=== PATIENT | male | born 1960 | race African-American/Black ===

== ENCOUNTER 2018-05-02 23:27 | Observation (INO) | payer OTHER ==
--- NOTE | 2018-05-02 23:49 | PDOC ---
Attending Attestation - HPI HPI: 05/03/18 00:38 The patient is a 57-year-old male with past medical history significant for DM, HTN, L. bundle branch block (10 years ago), prostate CA s/p prostatectomy (total ) and lithotripsy presents to the emergency department via EMS with chest pain since 9:00 pm. The patient presents with intermittent L. sided chest pain that radiates to the L. side of the shoulder. The patient describes the pain as pressure in character, with initial severity of 9/10. The patient reports the pain is associated with difficulty breathing, nausea, headache, diaphoresis and lightheadedness. Enroute, the patient was given 324 mg of ASA. The patient reports a decrease in severity since. The patient reports an episode of shortness of breath yesterday when he was ambulating up the stairs. Denies palpitation, shortness of breath, regurgitation, heartburn, trauma to the chest , orthopnea, dyspnea. The patient reports the daily use of ASA. The patient reports a recent hospitalization for L. sided numbness, denies having a stroke. The patient reports being compliant with his medications. Allergies: None recorded. Social history: No past or present use of tobacco, alcohol or recreational drug use. Continuous Improvement Engineer: Dr. Roldan. 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 The patient reports having an Echo done, which no changes compares to prior. Stress test normal. PCP: Last follow up a few months ago. - Physicial Exam PE: 05/03/18 01:57 GENERAL: Awake, alert, and fully oriented, in no acute distress HEAD: No signs of trauma EYES: PERRLA, EOMI, sclera anicteric, conjunctiva clear ENT: Auricles normal inspection, hearing grossly normal, nares patent, oropharynx clear without exudates. Moist mucosa NECK: Normal ROM, supple, no lymphadenopathy, JVD, or masses LUNGS: Breath sounds equal, clear to auscultation bilaterally. No wheezes, and no crackles HEART: Regular rate and rhythm, normal S1 and S2, no murmurs, rubs or gallops ABDOMEN: Soft, nontender, normoactive bowel sounds. No guarding, no rebound. No masses EXTREMITIES: Normal range of motion, no edema. No clubbing or cyanosis. No cords, erythema, or tenderness NEUROLOGICAL: Cranial nerves II through XII grossly intact. Normal speech, normal gait SKIN: Warm, Dry, normal turgor, no rashes or lesions noted. - Medical Decision Making 05/03/18 00:39 Documentation prepared by Benita Tristan, acting as medical legal investigator for Chandni Sanchez MD. <Benita Tristan - Last Filed: 05/03/18 01:57> - Resident Resident Name: Boubacar Guzmán - ED Attending Attestation I have performed the following: I have examined & evaluated the patient, The case was reviewed & discussed with the resident, I agree w/resident's findings & plan - HPI HPI: 05/02/18 23:48 Pt comes with CP. LBBB on EKG; unknown if it is old or new. - Physicial Exam PE: 05/03/18 00:27 Agree with resident exam - Medical Decision Making 05/03/18 00:27 Cardiac enzymes -serial; we will admit to telemetry obs. 05/03/18 02:08 Pt has normal labs; only BUN and Cr are elevated. <Chandni Sanchez - Last Filed: 05/03/18 02:08> Heart Score/ECG Review - History History: Slightly suspicious - Electrocardiogram EKG: Non specific repolarization disturbance - Age Age: 45-65 - Risk Factors Risk Factors Heart Score: Yes Hx Hypertension, Yes Hx Diabetes Based on the list above the patient has:: 1-2 risk factors - Troponin Troponin: </= normal limit - Score Heart Score - Total: 3 <Chandni Sanchez - Last Filed: 05/03/18 02:08>
--- NOTE | 2018-05-03 00:26 | PDOC ---
History of Present Illness - General Stated Complaint: CHEST PAIN Time Seen by Provider: 05/02/18 23:41 History Source: Patient Exam Limitations: No Limitations - History of Present Illness Initial Comments: 05/03/18 00:14 57 y/o M with PMH of HTN, DM, HLD, LBBB( diagnosed 10 years ago), ca prostate s/ p prostectomy in 2006 ( NO RT) was brought to hospital by EMS with a chief complaint of chest pain. Patient states that pain started at 9 pm when h was trying to stand. Pain was on left side 6/10 in intensity, pressure type, radiating to left neck arm and whole left side side. Pain is intermittent since then last for 10 to q5 minutes and goes away it self. Reoccurs after very 5 to 10 minute. Pain was associated with nausea, sob, lightheadedness and diaphoresis. Pt got 324mg of aspirin in ambulance. Since he is in hospital his chest pain has decreased to 1/10 in intensity and has no more sob, lightheadedness and nausea. He also report sob when he go up stairs. Denies orthopnea, Paroxysmal dyspnea. Denies swelling in legs. Denies heart burn and regurgitation. Link Trainer Teacher Dr friedman--- last time seen last year.--- Report nuclear stress test was done and as per aria it was normal. Also states echo done last year has no change. Saw his supervisor opening and picking few months ago. Traveled one month ago to [place]. PMH as above PSH: lithotripsy right side, prostatectomy Social non smoker, ocassional alcohol Family: no h/o heart disease Medication:amlodipine 10mg daily lisinopril 40 daily toprol xl 100mg daily metformin 1000mg bid aspirin 81 daily lipitor daily victoza 1.2 mg daily Patient took all meds today. Past History - Past Medical History Allergies/Adverse Reactions: Allergies Allergy/AdvReac Type Severity Reaction Status Date / Time No Known Allergies Allergy Verified 05/03/18 01:11 Home Medications: Ambulatory Orders Amlodipine Besylate 10 mg PO DAILY 05/03/18 Atorvastatin Ca [Lipitor] 20 mg PO HS 05/03/18 Liraglutide [Victoza -] 1.2 unit SQ DAILY 05/03/18 Lisinopril [Prinivil -] 40 mg PO DAILY 05/03/18 Metformin HCl [Metformin HCl ER] 1,000 mg PO BID 05/03/18 Metoprolol Tartrate [Lopressor] 100 mg PO DAILY 05/03/18 - Suicide/Smoking/Psychosocial Hx Smoking History: Never smoked Have you smoked in the past 12 months: No Information on smoking cessation initiated: No Hx Alcohol Use: No Drug/Substance Use Hx: No Review of Systems - Review of Systems Able to Perform ROS?: Yes Constitutional: Yes: Diaphoresis. No: Chills, Fever HEENTM: No: Blurred Vision Respiratory: Yes: SOB with Exertion. No: Cough, Shortness of Breath, SOB at Rest Cardiac (ROS): Yes: Chest Pain, Lightheadedness, Chest Tightness. No: Irregular Heart Rate, Palpitations, Syncope ABD/GI: Yes: Nausea. No: Diarrhea, Difficulty Swallowing, Rectal Bleeding, Vomiting Musculoskeletal: No: Back Pain Neurological: Yes: Headache. No: Numbness, Paresthesia, Seizure, Tingling *Physical Exam - Vital Signs Last Vital Signs Temp Pulse Resp BP Pulse Ox 97.7 F 74 18 128/79 99 05/02/18 23:53 05/02/18 23:53 05/02/18 23:53 05/02/18 23:53 05/02/18 23:53 - Physical Exam General Appearance: Yes: Appropriately Dressed. No: Apparent Distress HEENT: positive: EOMI Neck: positive: Normal Thyroid, Supple. negative: Tender Respiratory/Chest: positive: Lungs Clear, Normal Breath Sounds. negative: Chest Tender, Respiratory Distress, Accessory Muscle Use, Stridor, Wheezing Cardiovascular: positive: Regular Rhythm, Regular Rate, S1, S2. negative: Murmur Gastrointestinal/Abdominal: positive: Normal Bowel Sounds, Flat, Soft. negative : Distended, Guarding, Rebound, Tenderness Musculoskeletal: positive: Normal Inspection. negative: CVA Tenderness Extremity: positive: Normal Inspection, Normal Range of Motion, Pedal Edema (1+) . negative: Tender Neurologic: positive: eastern philosophy professor II-XII NML intact, Fully Oriented, Alert, Normal Mood/ Affect, Normal Response, Motor Strength 5/5 ED Treatment Course - LABORATORY CBC & Chemistry Diagram: 05/03/18 00:38 05/03/18 00:12 Medical Decision Making - Medical Decision Making 05/03/18 00:29 57 y/o M with PMH of HTN, DM, HLD, LBBB( diagnosed 10 years ago), ca prostate s/ p prostectomy in 2006 ( NO RT) was brought to hospital by EMS with a chief complaint of chest pain. Patient states that pain started at 9 pm when h was trying to stand. Pain was on left side 6/10 in intensity, pressure type, radiating to left neck arm and whole left side side. Pain is intermittent since then last for 10 to 5 minutes and goes away it self. Reoccurs after very 5 to 10 minute. Pain was associated with nausea, sob, lightheadedness and diaphoresis. Pt got 324mg of aspirin in ambulance. Since he is in hospital his chest pain has decreased to 1/10 in intensity and has no more sob, lightheadedness and nausea. He also report sob when he go up stairs. Denies orthopnea, Paroxysmal dyspnea. Denies swelling in legs. Denies heart burn and regurgitation. Link Trainer Teacher Dr friedman--- last time seen last year.--- Report nuclear stress test was done and as per patinet it was normal. Also states echo done last year has no change. ekg : NSr, LBBB, qtc 454, hr 69, qrs 146 we will get cbc, cmp, cardiac profile and lipid profile patient got 324mg aspirin in ambulance. Took toprol 100mg, lisinopril, lipitor, amlodipine and metformin in morning. start patient on cardiac monitoring. HEART score 6. 05/03/18 01:27 initial trop i normal. we will repeat tropi after 6 hours. patient has high suspicious history with h/o LBBB we will keep pt for observation Plan discussed with dr karrie hein microbloged. 05/03/18 02:[address] Tung Garcias. we will keep patient for obs. *DC/Admit/Observation/Transfer Diagnosis at time of Disposition: Chest pain at rest - Discharge Dispostion Decision to Admit order: Yes - Referrals - Patient Instructions - Post Discharge Activity
[2018-05-03 00:53] LABS: BASO % 0.7 % (0-2.0); EOS % 1.6 % (0-4.5); HEMATOCRIT 39.4 % (35.4-49); HEMOGLOBIN 13.2 GM/dL (11.7-16.9); LYMPH % 22.2 % (8-40); MCH 29.3 pg (25.7-33.7); MCHC 33.6 g/dl (32.0-35.9); MEAN CELL VOLUME 87.4 fl (80-96); MEAN PLT VOLUME 8.3 fl (7.5-11.1); MONO % 8.6 % (3.8-10.2); NEUT % 66.9 % (42.8-82.8); PLATELET COUNT 207 K/MM3 (134-434); RBC 4.51 M/mm3 (4.00-5.60); RDW 14.4 % (11.9-15.9); WHITE BLOOD COUNT 6.4 K/mm3 (4.0-10.0)
[2018-05-03 01:23] LABS: ALK PHOS 85 U/L (45-117); ANION GAP 6 MMOL/L (8-16); BILIRUBIN,TOTAL 0.7 mg/dL (0.2-1); BLOOD UREA NITROGEN 24 mg/dL (7-18); CHLORIDE 100 mmol/L (98-107); CHOLESTEROL 154 mg/dL (50-200); CO2 31 mmol/L (21-32); CREATININE 1.7 mg/dL (0.55-1.3); GLUCOSE,RANDOM 116 mg/dL (74-106); HDL CHOLESTEROL 44 mg/dL (40-60); MAGNESIUM 1.9 mg/dL (1.8-2.4); POTASSIUM 3.8 mmol/L (3.5-5.1); SGOT/AST 19 U/L (15-37); SGPT/ALT 22 U/L (13-61); SODIUM 137 mmol/L (136-145); TOT PROT 7.7 g/dl (6.4-8.2); TRIGLYCERIDES 142 mg/dL (0-150)
[2018-05-03] MEDS ORDERED: ATORVASTATIN CA 40 MG TABLET (FP) PO ONE (01:33)
--- NOTE | 2018-05-03 01:36 | PN ---
Teaching Attending Note Name of Resident: Mauro Kessler ATTENDING PHYSICIAN STATEMENT I saw and evaluated the patient. I reviewed the resident's note and discussed the case with the resident. I agree with the resident's findings and plan as documented. SUBJECTIVE: Patient is a 57 year old man with PMH of HTN, DM, HLD, LBBB ( diagnosed 10 years ago), and prostate cancer s/p prostectomy in 2006 ( NO RT) was brought to the ER by EMS with a chief complaint of chest pain. Patient states that pain started at 9 pm when he was trying to stand. Pain was on left side 6/10 in intensity, pressure type, radiating to left neck arm and whole left side side. Pain is intermittent since then last for 10 to q5 minutes and goes away it self. Reoccurs after very 5 to 10 minute. Pain was associated with nausea, sob, lightheadedness and diaphoresis. Pt got 324mg of aspirin in ambulance. Since he is in hospital his chest pain has decreased to 1/10 in intensity and has no more sob, lightheadedness and nausea. He also report SOB when he goes upstairs. Denies orthopnea, PND or swelling in his legs. OBJECTIVE: Alert and in no acute distress Vital Signs Period Temp Pulse Resp BP Sys/[place] Pulse Ox Last 24 Hr 97.7 F 70-74 16-18 128-155/70-79 99-99 HEENT: No Jaundice, eye redness or discharge, PERRLA, EOMI. Normocephalic, atraumatic. External ears are normal and hearing is grossly intact. No nasal discharge. Neck: Supple, nontender. No palpable adenopathy or thyromegaly. No JVD Chest: Good effort. Clear to auscultation and percussion. Heart: Regular. No S3, rub or murmur Abdomen: Not distended, soft, nontender and no HSM. No rebound or guarding. Normoactive bowel sounds. Ext: Peripheral pulses intact. No leg edema. Skin: Warm and dry. No petechiae, rash or ecchymosis. Neuro: Alert. Oriented x3. CN 2-12 grossly intact. Sensation grossly intact in all four extremities and DTR are symmetric. Home Medications Medication Instructions Recorded Amlodipine Besylate 10 mg PO DAILY 05/03/18 Atorvastatin Ca [Lipitor] 20 mg PO HS 05/03/18 Liraglutide [Victoza -] 1.2 unit SQ DAILY 05/03/18 Lisinopril [Prinivil -] 40 mg PO DAILY 05/03/18 Metformin HCl [Metformin HCl ER] 1,000 mg PO BID 05/03/18 Metoprolol Tartrate [Lopressor] 100 mg PO DAILY 05/03/18 Abnormal Lab Results 05/03/18 00:12 Anion Gap 6 L BUN 24 H Creatinine 1.7 H Random Glucose 116 H ASSESSMENT AND PLAN: 1. Chest pain - Has major risk factors. Says he had negative cardiac cath and stress test a while back. EKG shows LBBB with no changes of ACS and initial troponin is negative. Will admit as an Obs case to telemetry to rule out ACS. Get ECHO and cardiology consult. Adjust medications to attain normotension. Patient counseled to make sure he does not take all his antihypertensive medications at one time - needs to take am and pm to ensure adequate 24 hour BP control. Low salt diet and lifestyle changes stressed. 2. DM - For now, we will hold the home diabetes drugs and implement sliding scale insulin regimen. Provide comprehensive diabetes care with patient teaching and counseling about the importance of euglycemia, eye care and foot care. 3. DARIEN? - Etiology unclear. Will get UA and sonogram. Avoid nephrotoxic agents such as NSAIDS, aminoglycosides, contrast dyes and certain Alternative medicine products. 4. DVT prophylaxis - Heparin 5000u sq tid. 5. Advance directives - Full code
[2018-05-03] MEDS ORDERED: ATORVASTATIN CA 40 MG TABLET (FP) ONE (01:46)
[2018-05-03] MEDS ORDERED: SODIUM CHLORIDE 0.9% 500 ML INFUS.BAG IV ONE (01:57)
[2018-05-03] MEDS ORDERED: ACETAMINOPHEN 325 MG TABLET (FP) ONE (02:19)
[2018-05-03] MEDS ORDERED: ACETAMINOPHEN 325 MG TABLET (FP) PO ONE (02:30)
[2018-05-03] MEDS ORDERED: SODIUM CHLORIDE 1,000 ML IV SCH (03:00)
[2018-05-03 04:01] VITALS: BMI 24.7
--- NOTE | 2018-05-03 04:03 | HP ---
CHIEF COMPLAINT: Chest pain/pressure, nausea, sweating, SOB PCP: HISTORY OF PRESENT ILLNESS: 57 yo male with PMH of HTN, HLD, known LBBB (diagnosed years ago), Prostate cancer s/p Prostatectomy, kidney stones s/p multiple lithotripsies in the last year presented to the ED with a complaint of chest pain vs pressure that he says was 6/10, radiated up his neck on the left and down his entire body on the left, and was associated with SOB, diaphoresis, lightheadedness, and possibly some mild confusion. He states he has never had this sensation before, though pt does admit to requiring a PCI many years ago which did not require any cardiac stents. He states that he had a nuclear stress test about two years ago which was also normal. Of note he mentions that he has been told on a prior echo years ago that he has a very small "hole in his heart" but he does not know specifically what it is. Of note he also mentions a recent history of multiple kidney stones. He says he has had "two lithotripsies and a laser" done in the last year or so. He says that he thinks he has one now. He denies any gross hematuria, and says he saw a doctor yesterday who checked his urine and said it was okay. 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 ER course was notable for: (1) EKG, Cardiac enzymes not concerning for ACS (2) CBC, CMP (3) Recent Travel: none PAST MEDICAL HISTORY: As Above PAST SURGICAL HISTORY: Lithotripsies Prostatectomy Social History: Smoking: denies Alcohol: occasional use Drugs: denies Family History: Allergies No Known Allergies Allergy (Verified 05/03/18 01:11) HOME MEDICATIONS: Home Medications Medication Instructions Recorded Amlodipine Besylate 10 mg PO DAILY 05/03/18 Atorvastatin Ca [Lipitor] 20 mg PO HS 05/03/18 Liraglutide [Victoza -] 1.2 unit SQ DAILY 05/03/18 Lisinopril [Prinivil -] 40 mg PO DAILY 05/03/18 Metformin HCl [Metformin HCl ER] 1,000 mg PO BID 05/03/18 Metoprolol Tartrate [Lopressor] 100 mg PO DAILY 05/03/18 REVIEW OF SYSTEMS CONSTITUTIONAL: diaphoresis Absent: fever, chills,, generalized weakness, malaise, loss of appetite, weight change HEENT: Absent: rhinorrhea, nasal congestion, throat pain, throat swelling, difficulty swallowing, mouth swelling, ear pain, eye pain, visual changes CARDIOVASCULAR: chest pain, lightheadedness Absent: , syncope, palpitations, irregular heart rate,, peripheral edema RESPIRATORY: Absent: cough, shortness of breath, dyspnea with exertion, orthopnea, wheezing, stridor, hemoptysis GASTROINTESTINAL: nausea, Absent: abdominal pain, abdominal distension, vomiting, diarrhea, constipation, melena, hematochezia GENITOURINARY: Absent: dysuria, frequency, urgency, hesitancy, hematuria, flank pain, genital pain MUSCULOSKELETAL: Absent: myalgia, arthralgia, joint swelling, back pain, neck pain SKIN: Absent: rash, itching, pallor HEMATOLOGIC/IMMUNOLOGIC: Absent: easy bleeding, easy bruising, lymphadenopathy, frequent infections ENDOCRINE: Absent: unexplained weight gain, unexplained weight loss, heat intolerance, cold intolerance NEUROLOGIC: Absent: headache, focal weakness or paresthesias, dizziness, unsteady gait, seizure, mental status changes, bladder or bowel incontinence PSYCHIATRIC: Absent: anxiety, depression, suicidal or homicidal ideation, hallucinations. PHYSICAL EXAMINATION Vital Signs - 24 hr 05/02/18 05/03/18 05/03/18 23:53 01:20 02:28 Temperature 97.7 F 97.4 F L Pulse Rate 74 Pulse Rate [ 70 72 Left Radial] Respiratory 18 16 16 Rate Blood Pressure 128/79 Blood Pressure 155/70 149/83 [Right Arm] O2 Sat by Pulse 99 99 100 Oximetry (%) GENERAL: A&O, no acute distress HEAD: Normocephalic, atraumatic. EYES: PERRL, no scleral icterus EARS, NOSE, THROAT: oropharynx clear without exudates. Moist mucous membranes. NECK: supple without lymphadenopathy LUNGS: CTA b/l, no crackles or wheezes HEART: Regular rate and rhythm, louder S2, without murmur ABDOMEN: Soft, nontender to palpation, normoactive bowel sounds MUSCULOSKELETAL: No bony deformities or tenderness. EXTREMITIES: 2+ pulses, warm, well-perfused. No peripheral edema. NEUROLOGICAL: Cranial nerves II-XII grossly intact. Normal speech. PSYCHIATRIC: Cooperative. Good eye contact. Appropriate mood and affect. SKIN: Warm, dry, no rashes or lesions noted Laboratory Results - last 24 hr 05/03/18 05/03/18 00:12 00:38 WBC 6.4 RBC 4.51 Hgb 13.2 Hct 39.4 MCV 87.4 MCH 29.3 MCHC 33.6 RDW 14.4 Plt Count 207 MPV 8.3 Absolute Neuts (auto) 4.3 Neutrophils % 66.9 Lymphocytes % 22.2 Monocytes % 8.6 Eosinophils % 1.6 Basophils % 0.7 Nucleated RBC % 0 Sodium 137 Potassium 3.8 Chloride 100 Carbon Dioxide 31 Anion Gap 6 L BUN 24 H Creatinine 1.7 H Creat Clearance w eGFR 41.46 Random Glucose 116 H Calcium 9.0 Magnesium 1.9 Total Bilirubin 0.7 AST 19 ALT 22 Alkaline Phosphatase 85 Creatine Kinase 215 Creatine Kinase Index 0.4 CK-MB (CK-2) < 1.0 Troponin I < 0.02 Total Protein 7.7 Albumin 4.0 Triglycerides 142 Cholesterol 154 Total LDL Cholesterol 95 HDL Cholesterol 44 ASSESSMENT/PLAN: 57 yo male with PMH of HTN, HLD, NIDDM, known LBBB (diagnosed years ago), Prostate cancer s/p Prostatectomy, kidney stones s/p multiple lithotripsies in the last year placed into telemetry observation for r/o ACS Chest Pain - r/o ACS -Pt heart score is a 6 mostly due to pt history -Chest pain has improved, likely not ACS -EKG likely unchanged, repeat at 6am -Troponin negative, repeat at 6 am -Telemetry monitoring -Cardiology consult ordered -Echo ordered DARIEN, (vs CKD) possibly due to Recurrent renal calculi -Pt is followed outpatient -BUN/Cr noted elevated, Pt does not recall his most recent values -Encourage PO fluid hydration in addition to NS @ 100 cc/hr -Renal ultrasound -Consider nephrology input if worsening in AM with hydration HTN -Amlodipine 10 mg PO Daily -Lisinopril 40 mg PO Daily -Toprol XL 100 Daily -Will verify and restart, elevation in blood pressure could be secondary to pain HLD/ Probable CAD as per history -Lipitor 20 mg HS -ASA 81 NIDDM -Hold oral hyperlycemic meds -BGMs ACHS -Insulin sliding scale, will start low as pt likely insulin naive DVT Prophylaxis -Heparin 5000 units SQ TID FEN -Fluids: NS @ 75 cc/hr -Electrolytes: No electrolyte abnormalities, BMP in AM -Nutrition: Diabetic Diet Disposition Telemetry Observation Visit type - Emergency Visit Emergency Visit: Yes Care time: The patient presented to the Emergency Department on the above date and was hospitalized for further evaluation of their emergent condition. - New Patient This patient is new to me today: Yes Date on this admission: 05/03/18 - Critical Care Critical Care patient: No Hospitalist Screening - Colonoscopy Questionnaire Colonoscopy Questionnaire: Colonoscopy Questionnaire - Patient: 50 - 75 years old and never had a screening colonoscopy: Unknown History of colon or rectal polyps, or CA: Unknown History of IBD, Crohn's disease or UC: Unknown History of abdominal radiation therapy as a child: Unknown - Relative: 1 with colon or rectal CA, or polyps at age 60 or younger: Unknown Colon or rectal CA diagnosed at age 45 or younger: Unknown Multiple relatives with colon or rectal CA: Unknown - Outcome: Screening Result: Negative Screen
[2018-05-03] MEDS: INSULIN SLIDING SCALE (NOVOLOG) 1 VIAL SQ SCH ×2 (06:10→11:54)
[2018-05-03] MEDS: HEPARIN NA (PORCINE) 5,000 UNITS/ML 1ML VIAL SQ SCH ×2 (06:11→14:32)
[2018-05-03 06:13] LABS: HEMATOCRIT 39.3 % (35.4-49); MCH 28.9 pg (25.7-33.7); MCHC 33.2 g/dl (32.0-35.9); MEAN CELL VOLUME 87.1 fl (80-96); MEAN PLT VOLUME 8.3 fl (7.5-11.1); PLATELET COUNT 177 K/MM3 (134-434); RBC 4.51 M/mm3 (4.00-5.60); RDW 14.7 % (11.9-15.9); WHITE BLOOD COUNT 6.4 K/mm3 (4.0-10.0)
[2018-05-03 06:27] VITALS: TEMP 97.7
[2018-05-03 06:29] LABS: INR 1.19 (0.83-1.09); PROTHROMBIN TIME (PATIENT) 13.5 SEC (9.7-13.0)
[2018-05-03 06:42] LABS: URINE APPEARANCE CLEAR; URINE BILIRUBIN NEGATIVE (<2.0 mg/dL); URINE COLOR COLORLESS; URINE GLUCOSE (UA) NEGATIVE (NEGATIVE); URINE KETONE NEGATIVE (NEGATIVE); URINE LEUK ESTERASE NEGATIVE (NEGATIVE); URINE NITRITE NEGATIVE (NEGATIVE); URINE PROTEIN NEGATIVE (NEGATIVE); URINE UROBILINOGEN NEGATIVE mg/dL (0.2-1.0)
[2018-05-03 07:18] LABS: ANION GAP 5 MMOL/L (8-16); BLOOD UREA NITROGEN 20 mg/dL (7-18); CALCIUM 8.6 mg/dL (8.5-10.1); CHLORIDE 103 mmol/L (98-107); CO2 30 mmol/L (21-32); CREATININE 1.3 mg/dL (0.55-1.3); GLUCOSE,RANDOM 98 mg/dL (74-106); MAGNESIUM 1.8 mg/dL (1.8-2.4); PHOSPHOROUS 3.2 mg/dL (2.5-4.9); POTASSIUM 3.8 mmol/L (3.5-5.1); SODIUM 138 mmol/L (136-145)
[2018-05-03 08:24] VITALS: BP 144/72; PULSE 76
[2018-05-03] MEDS ORDERED: amLODIPine BESYLATE 10 MG TABLET (FP) PO SCH (10:00)
[2018-05-03] MEDS ORDERED: LISINOPRIL 20 MG TABLET (FP) PO SCH (10:00)
--- NOTE | 2018-05-03 10:20 | CON.CARD ---
Consult Consult Specialty:: Cardiology Referred by:: Rosa Reason for Consultation:: chest pain - History of Present Illness Chief Complaint: chest pain History of Present Illness: 57M h/o HTN, HLD, LBBB, CAD reportedly s/p PCI, multiple kidney stones, prostate ca s/p prostatectomy p/w chest pressure. Started day prior to admission, started in left chest and radiated up to neck on the left and down entire body. also had sob, diaphoresis, lightheadedness, felt confused. Sees Dr. Roldan for cardiology. Thinks he had nuclear stress over a year ago was told it was stable. trop neg x 2, Cr 1.7, EKG showed LBBB. Symptoms resolved, feels at baseline. Notes in day prior to admission had episode of shortness of breath when going upstairs which is unusual for him. - Past Medical History Cardio/Vascular: Yes: CAD, HTN - Alcohol/Substance Use Hx Alcohol Use: No - Smoking History Smoking history: Never smoked Have you smoked in the past 12 months: No Home Medications - Allergies Allergies/Adverse Reactions: Allergies Allergy/AdvReac Type Severity Reaction Status Date / Time No Known Allergies Allergy Verified 05/03/18 01:11 - Home Medications Home Medications: Ambulatory Orders Amlodipine Besylate 10 mg PO DAILY 05/03/18 Atorvastatin Ca [Lipitor] 20 mg PO HS 05/03/18 Liraglutide [Victoza -] 1.2 unit SQ DAILY 05/03/18 Lisinopril [Prinivil -] 40 mg PO DAILY 05/03/18 Metformin HCl [Metformin HCl ER] 1,000 mg PO BID 05/03/18 Metoprolol Succinate [Toprol Xl] 100 mg PO DAILY 05/03/18 Family Disease History - Family Disease History Family History: Unremarkable Review of Systems - Review of Systems Constitutional: reports: No Symptoms Eyes: reports: No Symptoms HENT: reports: No Symptoms Neck: reports: No Symptoms Cardiovascular: reports: Chest Pain, Shortness of Breath Respiratory: reports: SOB Gastrointestinal: reports: No Symptoms Genitourinary: reports: No Symptoms Musculoskeletal: reports: No Symptoms Integumentary: reports: No Symptoms Neurological: reports: No Symptoms Endocrine: reports: No Symptoms Hematology/Lymphatic: reports: No Symptoms Psychiatric: reports: No Symptoms Vital Signs: Vital Signs Temperature 97.7 F 05/03/18 06:26 Pulse Rate 76 05/03/18 08:23 Respiratory Rate 20 05/03/18 08:23 Blood Pressure 144/72 05/03/18 08:23 O2 Sat by Pulse Oximetry (%) 100 05/03/18 03:38 Constitutional: Yes: Well Nourished, No Distress Eyes: Yes: Conjunctiva Clear, EOM Intact HENT: Yes: Atraumatic, Normocephalic Neck: Yes: Supple, Trachea Midline Respiratory: Yes: Regular, CTA Bilaterally Gastrointestinal: Yes: Normal Bowel Sounds, Soft Renal/: Yes: WNL Cardiovascular: Yes: Regular Rate and Rhythm JVD: No Heart Sounds: Yes: S1, S2 Edema: No Peripheral Pulses: 2+ Left Doralis Pedis, 2+ Right Dorsalis Pedis Neurological: Yes: Alert, Oriented ...Motor Strength: WNL Psychiatric: Yes: Alert, Oriented - Other Data Labs, Other Data: CBC, BMP 05/03/18 05:30 05/03/18 05:30 INR, PTT INR 1.19 (0.83-1.09) H 05/03/18 05:30 Troponin, BNP 05/03/18 05/03/18 00:12 05:30 Troponin I < 0.02 Cancelled Troponin, BNP 05/03/18 05/03/18 00:12 05:30 Troponin I < 0.02 Cancelled Assessment/Plan EKG: sinus, LBBB tele: sinus 57M h/o HTN, HLD, LBBB, CAD s/p PCI, multiple kidney stones, prostate ca s/p prostatectomy p/w chest pressure. chest pressure - trop negative x 2 , no events on tele, unlikely ACS - EKG shows LBBB, old - discussed with patient, recommend repeat echo and nuclear stress test for risk stratification given clinical presentation and risk factors, however he would prefer to have this done with his outpatient hollow handle knife assembler - would recommend follow up early next week with hollow handle knife assembler in [place] for further evaluation HTN - stable, continue lisinopril, toprol HLD - on atorvastatin, LDL 95 - increase dose to 40 mg daily CAD s/p PCI - remote hx - continue aspirin
--- NOTE | 2018-05-03 13:51 | DS ---
Physical Exam: SUBJECTIVE: Patient seen and examined. asymptomatic. denies CP, SOB, fever, chills, N/V/C/D. no repeat episodes. no similiar episodes in the past few weeks. OBJECTIVE: Vital Signs Period Temp Pulse Resp BP Sys/[place] Pulse Ox Last 24 Hr 97.4 F-97.8 F 67-76 16-20 128-156/69-83 99-100 PHYSICAL EXAM GENERAL: The patient is awake, alert, and fully oriented, in no acute distress. HEAD: Normal with no signs of trauma. EYES: PERRL, extraocular movements intact, sclera anicteric, conjunctiva clear. ENT: Ears normal, nares patent, oropharynx clear without exudates, moist mucous membranes. NECK: Trachea midline, full range of motion, supple. LUNGS: Breath sounds equal, clear to auscultation bilaterally, no wheezes, no crackles, no accessory muscle use. HEART: Regular rate and rhythm, S1, S2 without murmur, rub or gallop. ABDOMEN: Soft, nontender, nondistended, normoactive bowel sounds, no guarding, no rebound, no hepatosplenomegaly, no masses. EXTREMITIES: 2+ pulses, warm, well-perfused, no edema. NEUROLOGICAL: Cranial nerves II through XII grossly intact. Normal speech, gait not observed. PSYCH: Normal mood, normal affect. SKIN: Warm, dry, normal turgor, no rashes or lesions noted. LABS Laboratory Results - last 24 hr 05/03/18 05/03/18 05/03/18 00:12 00:38 05:30 WBC 6.4 RBC 4.51 Hgb 13.2 Hct 39.4 MCV 87.4 MCH 29.3 MCHC 33.6 RDW 14.4 Plt Count 207 MPV 8.3 Absolute Neuts (auto) 4.3 Neutrophils % 66.9 Lymphocytes % 22.2 Monocytes % 8.6 Eosinophils % 1.6 Basophils % 0.7 Nucleated RBC % 0 PT with INR INR Sodium 137 Potassium 3.8 Chloride 100 Carbon Dioxide 31 Anion Gap 6 L BUN 24 H Creatinine 1.7 H Creat Clearance w eGFR 41.46 POC Glucometer Random Glucose 116 H Calcium 9.0 Phosphorus Magnesium 1.9 Total Bilirubin 0.7 AST 19 ALT 22 Alkaline Phosphatase 85 Creatine Kinase 215 Creatine Kinase Index 0.4 CK-MB (CK-2) < 1.0 Troponin I < 0.02 Cancelled Total Protein 7.7 Albumin 4.0 Triglycerides 142 Cholesterol 154 Total LDL Cholesterol 95 HDL Cholesterol 44 Urine Color Urine Appearance Urine pH Ur Specific [place] Urine Protein Urine Glucose (UA) Urine Ketones Urine Blood Urine Nitrite Urine Bilirubin Urine Urobilinogen Ur Leukocyte Esterase 05/03/18 05/03/18 05/03/18 05:30 05:30 05:30 WBC 6.4 RBC 4.51 Hgb 13.0 Hct 39.3 MCV 87.1 MCH 28.9 MCHC 33.2 RDW 14.7 Plt Count 177 MPV 8.3 Absolute Neuts (auto) Neutrophils % Lymphocytes % Monocytes % Eosinophils % Basophils % Nucleated RBC % PT with INR 13.50 H INR 1.19 H Sodium 138 Potassium 3.8 Chloride 103 Carbon Dioxide 30 Anion Gap 5 L BUN 20 H Creatinine 1.3 Creat Clearance w eGFR 56.50 POC Glucometer Random Glucose 98 Calcium 8.6 Phosphorus 3.2 Magnesium 1.8 Total Bilirubin AST ALT Alkaline Phosphatase Creatine Kinase Creatine Kinase Index CK-MB (CK-2) Troponin I < 0.02 Total Protein Albumin Triglycerides Cholesterol Total LDL Cholesterol HDL Cholesterol Urine Color Urine Appearance Urine pH Ur Specific [place] Urine Protein Urine Glucose (UA) Urine Ketones Urine Blood Urine Nitrite Urine Bilirubin Urine Urobilinogen Ur Leukocyte Esterase 05/03/18 05/03/18 05/03/18 05:33 06:00 11:53 WBC RBC Hgb Hct MCV MCH MCHC RDW Plt Count MPV Absolute Neuts (auto) Neutrophils % Lymphocytes % Monocytes % Eosinophils % Basophils % Nucleated RBC % PT with INR INR Sodium Potassium Chloride Carbon Dioxide Anion Gap BUN Creatinine Creat Clearance w eGFR POC Glucometer 103 101 Random Glucose Calcium Phosphorus Magnesium Total Bilirubin AST ALT Alkaline Phosphatase Creatine Kinase Creatine Kinase Index CK-MB (CK-2) Troponin I Total Protein Albumin Triglycerides Cholesterol Total LDL Cholesterol HDL Cholesterol Urine Color Colorless Urine Appearance Clear Urine pH 7.0 Ur Specific [place] 1.008 Urine Protein Negative Urine Glucose (UA) Negative Urine Ketones Negative Urine Blood Negative Urine Nitrite Negative Urine Bilirubin Negative Urine Urobilinogen Negative Ur Leukocyte Esterase Negative HOSPITAL COURSE: Date of Admission:05/03/18 Date of Discharge: 05/03/18 Admitting diagnosis: Typical CP Pre hospital course 57 yo male with PMH of HTN, HLD, known LBBB (diagnosed years ago), Prostate cancer s/p Prostatectomy, kidney stones s/p multiple lithotripsies in the last year presented to the ED with a complaint of chest pain vs pressure that he says was 6/10, radiated up his neck on the left and down his entire body on the left, and was associated with SOB, diaphoresis, lightheadedness, and possibly some mild confusion. He states he has never had this sensation before, though pt does admit to requiring a PCI many years ago which did not require any cardiac stents. He states that he had a nuclear stress test about two years ago which was also normal. Of note he mentions that he has been told on a prior echo years ago that he has a very small "hole in his heart" but he does not know specifically what it is. Of note he also mentions a recent history of multiple kidney stones. He says he has had "two lithotripsies and a laser" done in the last year or so. He says that he thinks he has one now. He denies any gross hematuria, and says he saw a doctor yesterday who checked his urine and said it was okay. He works as an [employer]. Subsequent hospital course Tele observation. 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 CE neg x2. seen by cardio who recommended the patient stay through the weekend for NMST and echo on Saturday. Pt declined and [facility]. Statin increased to 40mg. d/c home present at bedside. verbalized understanding and agreement with plan. Minutes to complete discharge: 40 Discharge Summary Reason For Visit: CHEST PAIN AT REST Current Active Problems Chest pain at rest (Acute) Diabetes (Chronic) HTN (hypertension) (Chronic) LBBB (left bundle branch block) (Chronic) Prostate cancer (Chronic) Condition: Guarded - Instructions Diet, Activity, Other Instructions: You were observed overnight due to chest pain. Your symptoms resolved. Nothing was seen on the monitor that was concerning You were evaluated here by a brick maker who recommended to have a stress test. However you declined at this time requesting to follow up with your brick maker for further testing if needed. It is recommended that you call Saturday for an appointment and inform them of your recent hospital stay. Your cholesterol medication was increased to 40mg. Please take this higher dose. A script has been sent to your pharmacy. Continue the rest of your home medication Follow up with your primary care doctor in 1 week Return to the ER if you develop chest pain or similar symptoms Referrals: Mack Leavitt MD [Primary Care Provider] - Disposition: HOME - Home Medications Comprehensive Discharge Medication List: Ambulatory Orders Amlodipine Besylate 10 mg PO DAILY 05/03/18 Atorvastatin Ca [Lipitor] 40 mg PO HS #30 tablet 05/03/18 Liraglutide [Victoza -] 1.2 unit SQ DAILY 05/03/18 Lisinopril [Prinivil -] 40 mg PO DAILY 05/03/18 Metformin HCl [Metformin HCl ER] 1,000 mg PO BID 05/03/18 Metoprolol Succinate [Toprol Xl] 100 mg PO DAILY 05/03/18 This patient is new to me today: Yes Date on this admission: 05/03/18 Emergency Visit: Yes ED Registration Date: 05/03/18 Care time: The patient presented to the Emergency Department on the above date and was hospitalized for further evaluation of their emergent condition. Critical Care patient: No - Discharge Referral Referred to [facility] No
--- NOTE | 2018-05-03 15:28 | EKG ---
Test Reason : Blood Pressure : / mmHG Vent. Rate : 063 BPM Atrial Rate : 063 BPM P-R Int : 204 ms QRS Dur : 154 ms QT Int : 436 ms P-R-T Axes : 057 -52 -28 degrees QTc Int : 446 ms NORMAL SINUS RHYTHM POSSIBLE LEFT ATRIAL ENLARGEMENT LEFT AXIS DEVIATION LEFT BUNDLE BRANCH BLOCK ABNORMAL ECG WHEN COMPARED WITH ECG OF 02-MAY-2018 23:44, NO SIGNIFICANT CHANGE WAS FOUND Confirmed by MD Claus, Armen ([id number]) on 05/03/2018 3:27:41 PM Referred By: Confirmed By:Armen Devlin MD
--- NOTE | 2018-05-03 15:28 | EKG ---
Test Reason : Blood Pressure : / mmHG Vent. Rate : 069 BPM Atrial Rate : 069 BPM P-R Int : 190 ms QRS Dur : 146 ms QT Int : 424 ms P-R-T Axes : 045 -49 -38 degrees QTc Int : 454 ms NORMAL SINUS RHYTHM POSSIBLE LEFT ATRIAL ENLARGEMENT LEFT AXIS DEVIATION LEFT BUNDLE BRANCH BLOCK ABNORMAL ECG NO PREVIOUS ECGS AVAILABLE Confirmed by MD Devlin Daniel ([id number]) on 05/03/2018 3:28:11 PM Referred By: Confirmed By:Armen Devlin MD
[2018-05-03] MEDS ORDERED: ATORVASTATIN CA 40 MG TABLET (FP) PO SCH (22:00)
[2018-05-03] MEDS ORDERED: ATORVASTATIN CA 20 MG TABLET (FP) PO SCH (22:00)
== END 2018-05-03 15:11 | disposition home or self-care (01) ==
LOC: JER 23:27 → JERBED 05-03 01:30 → J4W 05-03 04:01
PROVIDERS: ADMIT Internal Medicine; ATTEND Internal Medicine
PROC: 3E0337Z Introduction of Electrolytic and Water Balance Substance into Peripheral Vein, Percutaneous Approach (ICD-10-PCS; principal; 2018-05-03)
DX: R07.9 Chest pain, unspecified (principal); I25.10 Atherosclerotic heart disease of native coronary artery without angina pectoris; I10 Essential (primary) hypertension; Z95.5 Presence of coronary angioplasty implant and graft; N17.9 Acute kidney failure, unspecified; I44.7 Left bundle-branch block, unspecified; E11.9 Type 2 diabetes mellitus without complications; Z79.84 Long term (current) use of oral hypoglycemic drugs; E78.5 Hyperlipidemia, unspecified; Z85.46 Personal history of malignant neoplasm of prostate; Z87.442 Personal history of urinary calculi; Z79.82 Long term (current) use of aspirin; Z90.79 Acquired absence of other genital organ(s)
CPT/HCPCS: 36415; 80048; 80053; 80061; 81003; 82550; 82553; 82962; 83721; 83735; 84100; 84484; 85025; 85027; 85610; 93005; 93010; 96374; 99282-25; G0378; J1644; J7030